=== PATIENT | male | born 1950 | race Caucasian/White ===

== ENCOUNTER 2017-02-21 09:36 | Day surgery (SDC) ==
[2017-02-21] MEDS ORDERED: VERSED ONE (13:05)
[2017-02-21] MEDS ORDERED: DIPRIVAN 20 ML VIAL IVP ONE (13:05)
[2017-02-21 14:13] VITALS: BP 151/91; TEMP 98.4
--- NOTE | 2017-02-22 10:37 | OP ---
INDICATIONS FOR PROCEDURE: 66-year-old gentleman with a history of colon polyps unknown histology presents for colonoscopy exam. His last colonoscopy was 5 years ago. MEDICATIONS: SEE ANESTHESIA NOTES. PROCEDURE: COLONOSCOPY, SNARE POLYPECTOMY. REPORT: The risks, benefits, alternatives and limitations were discussed in detail with the patient. Informed consent was obtained. After adequate sedation was achieved, a digital rectal exam revealed good tone, no masses. The colonoscope was introduced into the rectum and advanced under direct visual guidance to the cecum. The cecum was identified by the appendiceal orifice and IC valve. Next to the appendiceal orifice was a small diminutive 3 to 4 mm polyp. I destroyed this using a snare. I then slowly withdrew the scope in a circumferential manner examining the mucosa quite carefully. I looked on the proximal and distal side of folds and flexures as best as possible. I was able to retroflex the scope in the right colon and left colon to increase visualization. In the junction of the transverse colon of the splenic flexure there was a semi pedunculated 5 to 6 mm polyp that I was able to remove by snare technique. There was scattered diverticulosis throughout the sigmoid. No other abnormalities noted including on retroflex view of the anal canal. The prep was good. The withdrawal time was 7 minutes and 54 seconds. The patient tolerated the procedure well with stable vital signs and pulse oximetry throughout. IMPRESSION: 1. DIVERTICULOSIS 2. TWO (2) POLYPS SUCCESSFULLY REMOVED OR DESTROYED ABOVE RECOMMENDATIONS: 1. High fiber diet. 2. Office visit as needed. 3. Await polyp pathology. If everything is benign as expected, recommend repeat colonoscopy examination again in 5 years, sooner if there are signs or symptoms to indicate otherwise. CC: DR. MEÑO ELI
== END 2017-02-21 14:34 | disposition home or self-care (01) ==
LOC: SURG 09:36
PROVIDERS: ATTEND Internal Medicine Gastroenterology
DX: Z09 Encounter for follow-up examination after completed treatment for conditions other than malignant neoplasm (principal); Z86.010 Personal history of colon polyps; D12.3 Benign neoplasm of transverse colon; K63.5 Polyp of colon; K57.30 Diverticulosis of large intestine without perforation or abscess without bleeding